=== PATIENT | male | born 1955 | race Caucasian/White ===

== ENCOUNTER 2019-05-10 14:45 | Observation (INO) ==
[2019-05-10] MEDS ORDERED: SODIUM CHLORIDE 0.9% 1000ML 1,000 ML IV ONE (14:57)
[2019-05-10 15:37] LABS: Basophils # (auto) 0.01 K/uL (0-0.2); Basophils % (auto) 0.1 %; Eosinophils # (auto) 0.11 K/uL (0-0.5); Eosinophils % (auto) 1.5 %; Hematocrit (blood only) 44.2 % (42-52); Hemoglobin 15.5 g/dL (14.0-18.0); Immature Granulocytes # (auto) 0.01 K/uL (0.00-0.02); Immature Granulocytes % (auto) 0.1 %; Lymphocytes % (auto) 26.4 %; Mean Corpuscular Hemoglobin 32.5 pg (25-34); Mean Corpuscular Hgb Conc 35.1 g/dL (32-36); Mean Corpuscular Volume 92.7 fL (80-100); Mean Platelet Volume 10.7 fL (7.4-10.4); Monocytes # (auto) 0.61 K/uL (0.11-0.59); Monocytes % (auto) 8.5 %; Neutrophils # (auto) 4.57 K/uL (1.4-6.5); Neutrophils % (auto) 63.4 %; Platelet Count 215 K/uL (130-400); RDW Coefficient of Variation 13.7 % (11.5-14.5); RDW Standard Deviation 46.8 fL (36.4-46.3); Red Blood Count 4.77 M/uL (4.7-6.1); White Blood Count 7.21 K/uL (4.8-10.8)
[2019-05-10 15:39] LABS: Appearance Urine Clear (Clear); Bacteria Urine Automated Negative (Negative); Bilirubin Urine Negative (Negative); Blood Urine Negative (Negative); Color Urine Dark Yellow; Glucose Urine UA Negative (Negative); Ketones Urine Trace (Negative); Leukocyte Esterase Urine Trace (Negative); Nitrite Urine Negative (Negative); Protein Urine Trace (Negative); RBC Urine Automated 0-4 /hpf (0-4); Specific Gravity Urine 1.026 (1.000-1.030); Urobilinogen Urine Negative (Negative)
--- NOTE | 2019-05-10 15:52 | XRay Report ---
XR chest 1V portable CLINICAL HISTORY: 63 years-old Male presenting with Chest Pain. TECHNIQUE: Portable upright AP view of the chest was obtained. COMPARISON: None. FINDINGS: Cardiomediastinal silhouette normal. No focal opacity. No large effusion or pneumothorax. Osseous str uctures normal. Upper abdomen normal. IMPRESSION: 1. No acute cardiopulmonary disease. Electronically signed by: Mauricio Adhikari M.D. 05/10/2019 3:51 PM
[2019-05-10 15:54] LABS: Alanine Aminotransferase 40 U/L (12-78); Albumin Level 3.7 gm/dl (3.4-5.0); Aspartate Aminotransferase 20 U/L (15-37); BUN Creatinine Ratio 17.3 (10-20); Blood Urea Nitrogen 20 mg/dl (7-18); Calcium 9.1 mg/dl (8.5-10.1); Carbon Dioxide 28 mmol/L (21-32); Chloride 106 mmol/L (98-107); Creatinine Clr Calc Pharmacy 61.9 ml/min; Est GFR (African American) 80.9; Est GFR (Non-African American) 69.8; Glucose 211 mg/dl (70-99); Lipase 237 U/L (73-393); Magnesium 2.1 mg/dl (1.8-2.4); Potassium 3.8 mmol/L (3.5-5.1); Sodium 139 mmol/L (136-145)
[2019-05-10] MEDS ORDERED: OPTIRAY 320 125ml IV PRN (16:08)
[2019-05-10 16:09] LABS: Alkaline Phosphatase 86 U/L (45-117); Bilirubin,Total 0.5 mg/dl (0.2-1); Globulin 3.8 gm/dl (2.5-4.0); Phosphorus 1.5 mg/dl (2.5-4.9); Total Protein 7.5 gm/dl (6.4-8.2); Troponin I < 0.015 ng/ml (0-0.045)
[2019-05-10 16:23] LABS: T4 Free Thyroxine 0.75 ng/dl (0.8-1.6)
--- NOTE | 2019-05-10 16:24 | CT Scan Report ---
CT head/brain wo con CLINICAL HISTORY: 63 years-old Male presenting with near syncope. TECHNIQUE: Multidetector CT imaging of the head was performed without the use of intravenous contrast . IV contrast: None. One or more dose lowering techniques were used consistent with the principles of ALARA (as low as reasonably achievable), including automatic exposure control, mA or kV adjustment t o individual patient size, and/or use of iterative reconstruction. COMPARISON: None. CT DOSE (mGy.cm): The estimated cumulative dose is 1087.37. FINDINGS: Bingo Checker topogram: Unremarkable. Ventricles and sulci normal in size. No hemorrhage. Brain parenchyma normal in appearance with preser jasmina mackey-white differentiation. No acute territorial infarct. No mass effect or midline shift. No ext ra-axial fluid collection. Paranasal sinuses and mastoid air cells clear. Calvarium intact. IMPRESSION: 1. No acute intracranial abnormality. Electronically signed by: Mauricio Adhikari M.D. 05/10/2019 4:23 PM
--- NOTE | 2019-05-10 16:26 | CT Scan Report ---
CT angio head w con CLINICAL HISTORY: 63 years-old Male presenting with near syncope, disorientation. TECHNIQUE: Multidetector CT angiography of the head was performed after the administration of intrave nous contrast. 3-D volumetric and/or maximum intensity projection (MIP) images were subsequently jonathan nstructed for review. IV contrast: 120 mL of Optiray 320. One or more dose lowering techniques were u sed consistent with the principles of ALARA (as low as reasonably achievable), including automatic ex posure control, mA or kV adjustment to individual patient size, and/or use of iterative reconstructio n. COMPARISON: None. CT DOSE (mGy.cm): The estimated cumulative dose is 1087.37. FINDINGS: Stripper Machine Operator topogram: Unremarkable. Anterior circulation: Intracranial portions of the internal carotid arteries patent to the level of t he termini. Anterior cerebral arteries patent. Middle cerebral arteries patent. Anterior communicatin g artery patent. Posterior circulation: Codominant vertebral arteries. Intradural portions of the vertebral arteries p atent. Posterior inferior cerebellar arteries patent. Basilar artery patent. Anterior inferior cerebe llar arteries poorly visualized. Superior cerebellar arteries patent. Posterior cerebral arteries hyp oplastic or aplastic and the P1 segments and otherwise patent. Posterior communicating arteries paten t. Dural venous sinuses: Patent. Other: Allowing for the phase of contrast, brain parenchyma within normal limits. Calvarium intact. IMPRESSION: 1. No evidence of aneurysm, focal vessel occlusion, or significant stenosis of the intracranial vega randa. Electronically signed by: Mauricio Adhikari M.D. 05/10/2019 4:25 PM
--- NOTE | 2019-05-10 16:36 | CT Scan Report ---
CT angio neck with con CLINICAL HISTORY: 63 years-old Male presenting with near syncope, episodic disorientation. TECHNIQUE: Multidetector CT angiography of the neck was performed after the administration of intrave nous contrast. 3-D volumetric and/or maximum intensity projection (MIP) images were subsequently jonathan nstructed for review. IV contrast: 120 mL of Optiray 320. One or more dose lowering techniques were u sed consistent with the principles of ALARA (as low as reasonably achievable), including automatic ex posure control, mA or kV adjustment to individual patient size, and/or use of iterative reconstructio n. Stenosis measurements were based on NASCET-like criteria (distal lumen diameter as the denominator for stenosis measurement). COMPARISON: None. CT DOSE (mGy.cm): The estimated cumulative dose is 1087.37 mGy.cm. FINDINGS: Pocket Closer topogram: Unremarkable. Aortic arch: Normal three-vessel aortic arch with patent origins of the branch vessels. Innominate artery: Patent. Right subclavian artery: Patent. Right common carotid artery: Patent. Right internal and external carotid arteries: Right carotid bifurcation patent. Right internal and ex ternal carotid arteries widely patent. Left common carotid artery: Patent. Left internal and external carotid arteries: Left carotid bifurcation patent. Left internal and exter nal carotid arteries widely patent. Left subclavian artery: Patent. Vertebral arteries: Right dominant vertebral artery. Origins and courses of the bilateral vertebral a rteries patent. Other: Limited intracranial evaluation within normal limits. Soft tissues of the neck normal allowing for the phase of contrast. Degenerative changes of the cervical spine. Lung apices clear. IMPRESSION: 1. No evidence of dissection, focal vessel occlusion, or significant stenosis of the cervical arteri es. Electronically signed by: Mauricio Adhikari M.D. 05/10/2019 4:35 PM
[2019-05-10] MEDS ORDERED: POTASSIUM PHOS 3 MMOL/1 ML INFUSION IV STA (16:38)
[2019-05-10] MEDS ORDERED: POTASSIUM PHOSPHATE 9 MMOL in SODIUM CHLORIDE 0.9% 250 ML IV ONE (17:00)
[2019-05-10] MEDS ORDERED: ONDANSETRON INJ 2 MG/ML 2 ML VIAL IV PRN (19:37)
[2019-05-10] MEDS ORDERED: NITROGLYCERIN SL 0.4 MG/TAB TAB SL PRN (19:37)
[2019-05-10] MEDS ORDERED: ACETAMINOPHEN 325 MG TAB PO PRN (19:37)
--- NOTE | 2019-05-10 19:59 | History and Physical Report ---
DATE OF ADMISSION: 05/10/2019 CHIEF COMPLAINT: Presyncope. HISTORY OF PRESENT ILLNESS: This is a 63-year-old male with past medical history significant for hypertension, hyperlipidemia, BPH, presents with presyncope. The patient is visiting [place] for football game. He is about [place] half hours from [place]. He was sitting in between two recreational vehicles; one of the vehicle engine was on. He was sitting in a chair, he suddenly felt dizzy, lightheaded and feeling hot and just sat down, then EMS was called in and he thought he should come in the hospital and check in. Currently resting comfortably and hemodynamically stable. Denies any chest pain, no shortness of breath, no cough, no fever, no chills, no headache, no blurred vision, no runny nose, no sore throat, no difficulty swallowing. No recent weight gain or weight loss. Sleeps okay. No fever, chills. Appetite is okay. No nausea, no abdominal pain, no shortness of breath. Generally normal bowel and bladder movements. Today while coming he moved his bowels in his pants, he thinks maybe because he could not have time to go to bathroom. It was somewhat loose. Denies any blood in stool or black stools. Normal bladder movements. No hematuria, no burning micturition, no swelling in the legs, no rash. ALLERGIES: No known drug allergies. PAST MEDICAL HISTORY: As mentioned above. PAST SURGICAL HISTORY: None. MEDICATIONS: Aspirin, atorvastatin, lisinopril, multivitamins, prostate vitamin. FAMILY HISTORY: Significant for father and mother had stroke and heart disease. SOCIAL HISTORY: No history of smoking; alcohol rarely. No drug use. REVIEW OF SYMPTOMS: As per HPI. Rest of review of systems negative. PHYSICAL EXAMINATION: GENERAL: The patient is of moderate build, not in acute distress. VITAL SIGNS: Temperature 36.6, pulse 100, respiratory rate 15, blood pressure 149/70, oxygen 98% on room air. HEENT: No pallor, no icterus. Pupils equal, round, and reactive to light. NECK: No JVD, no neck masses. CARDIOVASCULAR: S1, S2 heard, regular rate and rhythm, no murmur, no gallop. RESPIRATORY SYSTEM: Normal AP diameter. No accessory muscle use. No wheezing, no crackles. ABDOMEN: Soft, bowel sounds present, nontender. No distention. CENTRAL NERVOUS SYSTEM: Cranial nerves II-XII grossly intact. Nonfocal. EXTREMITIES: No edema, no erythema. LABORATORY DATA: WBC 7.2, hemoglobin 15.5, hematocrit 44.2, platelets 215. Sodium 139, potassium 3.8, chloride 106, bicarbonate 28, BUN 20, creatinine 1.1, serum glucose 211, calcium 9.1, phosphorus 1.5, magnesium 2.1, total bilirubin 0.5, AST 20, ALT 40, alkaline phosphatase 86. Troponin I less than 0.015. Lipase 237. TSH 4.6, free T4 0.75. Urinalysis, trace ketones. CT of the head unremarkable. Chest x-ray unremarkable. EKG shows left bundle branch block with rate of 108. No previous EKG is available. ASSESSMENT AND PLAN: This is a 63-year-old male who presents with presyncope. 1. Presyncope, could be from the dehydration as he was visiting for the football game, also could be some toxic fumes from the refreshment vehicles. Carboxyhemoglobin unremarkable. Currently hemodynamically stable.EKG shows Left bundle branch block, we do not have any records. Patient has no chest pain or shortness of breath. We will observe in tele floor. Serial cardiac enzymes, and echocardiogram 2. Hypertension. Continue his home medication of lisinopril with holding parameters. 3. Hyperlipidemia. Continue statin. 4. Hyperglycemia. Blood sugar was 211. Says he just had mountain dew. We will follow hemoglobin A1c levels. Monitor the blood sugar. Place him on diabetic diet. 5. Hypophosphatemia, phosphatase is 1.5. will place on neutra-phos Getting replaced in the ER. We will follow repeat labs. 6. Hypothyroidism, TSH is slightly high and free T4 is slightly on the lower range. We will follow repeat labs. If still low, we will start on Synthroid and follow with family doctor. 7. Deep venous thrombosis prophylaxis, SCDs. DISPOSITION: Closely monitor in tele floor. Level 1, full code. MTDD
[2019-05-10] MEDS: SODIUM CHLORIDE 0.9% 1000ML 1,000 ML IV SCH (20:04)
[2019-05-10] MEDS ORDERED: POT PHOSPHATE MONOBASIC W/ SOD TAB PO SCH (21:00)
--- NOTE | 2019-05-10 22:00 | Emergency Department Note ---
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 He reports that he was tailgating, between two RVs, for the football game. The patient notes that one of the RVs was running, and he began to feel lightheaded and warm. He notes that he went to the medic tent and was given oxygen and a cold compress, noting that both provided some relief. The patient denies any LOC, chest pain, and SOB. He denies any current symptoms or current pain. He reports that he did not have a lot to drink today. The patient notes that he felt normal today until the near-syncope occurred, stating that he feels normal now. He denies any alcohol consumption today. Home Medications Home Medications Medication Instructions Recorded Confirmed Type Prostate Vitamin 1 tab PO DAILY 05/10/19 05/10/19 History aspirin [Aspir-81] 81 mg PO DAILY 05/10/19 05/10/19 History atorvastatin [Lipitor] 5 mg PO DAILY 05/10/19 05/10/19 History cholecalciferol (vitamin D3) 2,000 unit PO DAILY 05/10/19 05/10/19 History [Vitamin D3] lisinopril 15 mg PO DAILY 05/10/19 05/10/19 History multivitamin 1 tab PO DAILY 05/10/19 05/10/19 History Allergies Allergy/AdvReac Type Severity Reaction Status Date / Time No Known Allergies Allergy Unverified 05/10/19 17:05 Past Med/Surg History Medical History Mitral valve prolapse Social History Preferred Language: Thai Communication Ability: Effective Beliefs That Will Affect Care: None Current Living Situation: Spouse Other Information That Helps Us Care for You: No Feels Safe at Home: Yes Safety Concerns: Feels Safe At This Time Smoking Status: Never smoker Hx Alcohol Use: Yes Alcohol type: beer and wine Hx Substance Use: No Review of Systems See HPI for pertinent positives & negatives. and A total of 10 systems reviewed and were otherwise negative Physical Exam Vital Signs Vital Signs - 24 hr 05/10/19 14:52 05/10/19 15:07 05/10/19 15:28 Temperature 36.6 C Temperature Source Oral Sepsis Recent Fever Within 48 Hours No Sepsis New/Unexplained Change in Mental Status No Sepsis Action Taken by Nursing No Action Required Pulse Rate - Lying 102 H Pulse Rate - Sitting 115 H Pulse Rate - Standing 123 H Pulse Rate 104 H Pulse Rate [Left Finger] Respiratory Rate 20 Respiratory Effort / Characteristics Respiratory Depth Respiratory Pattern Blood Pressure - Lying 136/78 Blood Pressure - Sitting 164/83 H Blood Pressure- Standing 135/89 Blood Pressure 132/75 Blood Pressure [Left Arm] Blood Pressure Mean 94 Blood Pressure Mean [Left Arm] Blood Pressure Position [Left Arm] Pulse Oximetry 96 97 Oxygen Delivery Method Room Air Room Air 05/10/19 16:00 05/10/19 16:57 05/10/19 18:11 Temperature Temperature Source Sepsis Recent Fever Within 48 Hours Sepsis New/Unexplained Change in Mental Status Sepsis Action Taken by Nursing Pulse Rate - Lying Pulse Rate - Sitting Pulse Rate - Standing Pulse Rate Pulse Rate [Left Finger] 107 H 109 H 100 H Respiratory Rate 20 18 15 Respiratory Effort / Characteristics Non-Labored Spontaneous Respiratory Depth Normal Respiratory Pattern Regular Blood Pressure - Lying Blood Pressure - Sitting Blood Pressure- Standing Blood Pressure Blood Pressure [Left Arm] 161/80 H 141/77 H 149/79 H Blood Pressure Mean Blood Pressure Mean [Left Arm] 107 98 102 Blood Pressure Position [Left Arm] Lying Pulse Oximetry 98 97 98 Oxygen Delivery Method Room Air Room Air Room Air GENERAL: Awake, alert, well-appearing, in no distress HENT: Normocephalic, atraumatic. Oropharynx with dry mucous membranes and otherwise unremarkable. EYES: Normal conjunctiva. Sclera non-icteric. NECK: Supple. No nuchal rigidity. FROM. No JVD. RESPIRATORY: CTAB. CARDIAC: Tachycardic rate, normal rhythm. Extremities warm and well perfused. Pulses equal. ABDOMEN: Soft, non-distended. No tenderness to palpation. No rebound or guarding. No masses. RECTAL: Deferred. MUSCULOSKELETAL: Chest examination reveals no tenderness. The back is symmetrical on inspection without obvious abnormality. There is no CVA tenderness to palpation. No joint edema. LOWER EXTREMITIES: Calves are equal size bilaterally and non-tender. No edema. No discoloration. NEURO: Normal sensorium. No sensory or motor deficits noted. Cerebellar function intact, including finger to nose, alternating palms, heel to tran. 5/5 strength and SILT x4 extremities. SKIN: No rash or jaundice noted. Course 153: The patient was evaluated in room A11. A complete history and physical exam was performed. 1719: I spoke with Dr. Gutierrez, [facility], about the patients case. He asked me to consult with [facility]. Dr. Gutierrez will further evaluate the patient. 1722: I updated the patient on his results. He was in agreement with the plan. 1731: I spoke with Dr. Blake, [facility], about the patient case. He will evaluate the patient, and he agrees with admission. Consultations Consultation #1: I spoke with Dr. Gutierrez, [facility], about the patients case. He asked me to consult with [facility]. Dr. Gutierrez w ill further evaluate the patient. Time: 17:19 Consultation #2: I spoke with Dr. Blake, [facility], about the patient case. He will evaluate the patient, and he agrees with admission. Time: 17:31 Administered Medications Sodium Chloride (Nss 1000ml) 1,000 mls @ 100 mls/hr IV .Q10H FAVIAN Stop: 06/09/19 19:36 Last Admin: 05/10/19 20:04 Dose: 100 mls/hr Documented by: [id number] Potassium Phosphate (Phospha 250 Neutral 155-852-130 Mg) 2 tab PO QID FAVIAN Stop: 06/09/19 20:59 Last Admin: 05/10/19 21:43 Dose: 2 tab Documented by: [id number] Discontinued Medications Sodium Chloride (Nss 1000ml) 1,000 mls @ 999 mls/hr IV .Q1H1M ONE Stop: 05/10/19 15:57 Last Infusion: 05/10/19 16:00 Dose: 0 mls/hr Documented by: [id number] Admin: 05/10/19 15:29 Dose: 999 mls/hr Documented by: [id number] Potassium Phosphate 9 mmol/ (Sodium Chloride) 253 mls @ 168 mls/hr IV TODAY@1700 ONE Stop: 05/10/19 18:30 Last Infusion: 05/10/19 19:13 Dose: 0 mls/hr Documented by: [id number] Admin: 05/10/19 17:09 Dose: 168 mls/hr Documented by: [id number] Ioversol (Optiray 320 125ml) 120 ml IV ONCE PRN PRN Reason: Interaction Checking Stop: 05/14/19 16:07 Last Admin: 05/10/19 16:09 Dose: 120 ml Documented by: [id number] Potassium Phosphate (Potassium Phosphate Replace) 9 mmol IV NOW STA Stop: 05/10/19 16:39 Last Admin: 05/10/19 17:14 Dose: Not Given Documented by: [id number] Medical Decision Making Differential Diagnosis Etiologies such as vasovagal event, infection, anemia, hypoglycemia, hypovolemia, electrolyte abnormalities, dysrhythmias, cardiac ischemia, cardiac tamponade, valvular heart disease, structural heart disease, seizure, vascular stenosis/dissection, pulmonary embolism, intracerebral event, toxicological process, neurologic event, as well as others were entertained. Medical Records Attestation: I reviewed the patient's medical records. Home Medications Current Medication List: was personally reviewed by me Laboratory Data Attestation: I reviewed the patient's lab results. Result diagrams: 05/10/19 15:26 05/10/19 15:26 Lab Results 05/10/19 05/10/19 05/10/19 Range/Units 15:26 15:26 15:26 WBC 7.21 (4.8-10.8) K/uL RBC 4.77 (4.7-6.1) M/uL Hgb 15.5 (14.0-18.0) g/dL Hct 44.2 (42-52) % MCV 92.7 (80-100) fL MCH 32.5 (25-34) pg MCHC 35.1 (32-36) g/dL RDW Std Deviation 46.8 H (36.4-46.3) fL RDW Coeff of Charissa 13.7 (11.5-14.5) % Plt Count 215 (130-400) K/uL MPV 10.7 H (7.4-10.4) fL Immature Gran % (Auto) 0.1 % Neut % (Auto) 63.4 % Lymph % (Auto) 26.4 % [place] % (Auto) 8.5 % Eos % (Auto) 1.5 % Baso % (Auto) 0.1 % Immature Gran # (Auto) 0.01 (0.00-0.02) K/uL Neut # (Auto) 4.57 (1.4-6.5) K/uL Lymph # (Auto) 1.90 (1.2-3.4) K/uL [place] # (Auto) 0.61 H (0.11-0.59) K/uL Eos # (Auto) 0.11 (0-0.5) K/uL Baso # (Auto) 0.01 (0-0.2) K/uL Carboxyhemoglobin % THgb Sodium 139 (136-145) mmol/L Potassium 3.8 (3.5-5.1) mmol/L Chloride 106 (98-107) mmol/L Carbon Dioxide 28 (21-32) mmol/L Anion Gap 4.0 (3-11) BUN 20 H (7-18) mg/dl Creatinine 1.13 (0.6-1.4) mg/dl Est Cr Clr Drug Dosing 61.9 ml/min Est GFR ( Amer) 80.9 Est GFR (Non-Af Amer) 69.8 BUN/Creatinine Ratio 17.3 (10-20) Glucose 211 H (70-99) mg/dl Calcium 9.1 (8.5-10.1) mg/dl Phosphorus 1.5 L* (2.5-4.9) mg/dl Magnesium 2.1 (1.8-2.4) mg/dl Total Bilirubin 0.5 (0.2-1) mg/dl AST 20 (15-37) U/L ALT 40 (12-78) U/L Alkaline Phosphatase 86 (45-117) U/L Troponin I < 0.015 (0-0.045) ng/ml Total Protein 7.5 (6.4-8.2) gm/dl Albumin 3.7 (3.4-5.0) gm/dl Globulin 3.8 (2.5-4.0) gm/dl Albumin/Globulin Ratio 1.0 (0.9-2) Lipase 237 (73-393) U/L TSH 4.620 H (0.300-4.500) uIu/ml Free T4 0.75 L (0.8-1.6) ng/dl Urine Color Dark Yellow Urine Appearance Clear (Clear) Urine pH 5.0 (4.5-7.5) Ur Specific [place] 1.026 (1.000-1.030) Urine Protein Trace H (Negative) Urine Glucose (UA) Negative (Negative) Urine Ketones Trace H (Negative) Urine Blood Negative (Negative) Urine Nitrite Negative (Negative) Urine Bilirubin Negative (Negative) Urine Urobilinogen Negative (Negative) Ur Leukocyte Esterase Trace H (Negative) Urine WBC (Auto) 1-5 (0-5) /hpf Urine RBC (Auto) 0-4 (0-4) /hpf U Hyaline Cast (Auto) 5-10 H (0-5) /lpf U Epithel Cells (Auto) 5-10 H (0-5) /lpf Urine Bacteria (Auto) Negative (Negative) 05/10/19 Range/Units 16:31 WBC (4.8-10.8) K/uL RBC (4.7-6.1) M/uL Hgb (14.0-18.0) g/dL Hct (42-52) % MCV (80-100) fL MCH (25-34) pg MCHC (32-36) g/dL RDW Std Deviation (36.4-46.3) fL RDW Coeff of Charissa (11.5-14.5) % Plt Count (130-400) K/uL MPV (7.4-10.4) fL Immature Gran % (Auto) % Neut % (Auto) % Lymph % (Auto) % [place] % (Auto) % Eos % (Auto) % Baso % (Auto) % Immature Gran # (Auto) (0.00-0.02) K/uL Neut # (Auto) (1.4-6.5) K/uL Lymph # (Auto) (1.2-3.4) K/uL [place] # (Auto) (0.11-0.59) K/uL Eos # (Auto) (0-0.5) K/uL Baso # (Auto) (0-0.2) K/uL Carboxyhemoglobin 0.0 % THgb Sodium (136-145) mmol/L Potassium (3.5-5.1) mmol/L Chloride (98-107) mmol/L Carbon Dioxide (21-32) mmol/L Anion Gap (3-11) BUN (7-18) mg/dl Creatinine (0.6-1.4) mg/dl Est Cr Clr Drug Dosing ml/min Est GFR ( Amer) Est GFR (Non-Af Amer) BUN/Creatinine Ratio (10-20) Glucose (70-99) mg/dl Calcium (8.5-10.1) mg/dl Phosphorus (2.5-4.9) mg/dl Magnesium (1.8-2.4) mg/dl Total Bilirubin (0.2-1) mg/dl AST (15-37) U/L ALT (12-78) U/L Alkaline Phosphatase (45-117) U/L Troponin I (0-0.045) ng/ml Total Protein (6.4-8.2) gm/dl Albumin (3.4-5.0) gm/dl Globulin (2.5-4.0) gm/dl Albumin/Globulin Ratio (0.9-2) Lipase (73-393) U/L TSH (0.300-4.500) uIu/ml Free T4 (0.8-1.6) ng/dl Urine Color Urine Appearance (Clear) Urine pH (4.5-7.5) Ur Specific [place] (1.000-1.030) Urine Protein (Negative) Urine Glucose (UA) (Negative) Urine Ketones (Negative) Urine Blood (Negative) Urine Nitrite (Negative) Urine Bilirubin (Negative) Urine Urobilinogen (Negative) Ur Leukocyte Esterase (Negative) Urine WBC (Auto) (0-5) /hpf Urine RBC (Auto) (0-4) /hpf U Hyaline Cast (Auto) (0-5) /lpf U Epithel Cells (Auto) (0-5) /lpf Urine Bacteria (Auto) (Negative) Imaging Data Radiologist's Impression: Radiology results as stated below per my review and the radiologist's interpretation: XR chest 1V portable CLINICAL HISTORY: 63 years-old Male presenting with Chest Pain. TECHNIQUE: Portable upright AP view of the chest was obtained. COMPARISON: None. FINDINGS: Cardiomediastinal silhouette normal. No focal opacity. No large effusion or pneumothorax. Osseous structures normal. Upper abdomen normal. IMPRESSION: 1. No acute cardiopulmonary disease. Electronically signed by: Mauricio Adhikari M.D. 05/10/2019 3:[address] angio head w con CLINICAL HISTORY: 63 years-old Male presenting with near syncope, disorientation. TECHNIQUE: Multidetector CT angiography of the head was performed after the administration of intravenous contrast. 3-D volumetric and/or maximum intensity projection (MIP) images were subsequently reconstructed for review. IV contrast: 120 mL of Optiray 320. One or more dose lowering techniques were used consistent with the principles of ALARA (as low as reasonably achievable), including automatic exposure control, mA or kV adjustment to individual patient size, and/or use of iterative reconstruction. COMPARISON: None. CT DOSE (mGy.cm): The estimated cumulative dose is 1087.37. FINDINGS: Nurse topogram: Unremarkable. Anterior circulation: Intracranial portions of the internal carotid arteries patent to the level of the termini. Anterior cerebral arteries patent. Middle cerebral arteries patent. Anterior communicating artery patent. Posterior circulation: Codominant vertebral arteries. Intradural portions of the vertebral arteries patent. Posterior inferior cerebellar arteries patent. Basilar artery patent. Anterior inferior cerebellar arteries poorly visualized. Superior cerebellar arteries patent. Posterior cerebral arteries hypoplastic or aplastic and the P1 segments and otherwise patent. Posterior communicating arteries patent. Dural venous sinuses: Patent. Other: Allowing for the phase of contrast, brain parenchyma within normal limits. Calvarium intact. IMPRESSION: 1. No evidence of aneurysm, focal vessel occlusion, or significant stenosis of the intracranial arteries. Electronically signed by: Mauricio Adhikari M.D. 05/10/2019 4:[address] angio neck with con CLINICAL HISTORY: 63 years-old Male presenting with near syncope, episodic disorientation. TECHNIQUE: Multidetector CT angiography of the neck was performed after the administration of intravenous contrast. 3-D volumetric and/or maximum intensity projection (MIP) images were subsequently reconstructed for review. IV contrast: 120 mL of Optiray 320. One or more dose lowering techniques were used consistent with the principles of ALARA (as low as reasonably achievable), including automatic exposure control, mA or kV adjustment to individual patient size, and/or use of iterative reconstruction. Stenosis measurements were based on NASCET-like criteria (distal lumen diameter as the denominator for stenosis measurement). COMPARISON: None. CT DOSE (mGy.cm): The estimated cumulative dose is 1087.37 mGy.cm. FINDINGS: Nurse topogram: Unremarkable. Aortic arch: Normal three-vessel aortic arch with patent origins of the branch vessels. Innominate artery: Patent. Right subclavian artery: Patent. Right common carotid artery: Patent. Right internal and external carotid arteries: Right carotid bifurcation patent. Right internal and external carotid arteries widely patent. Left common carotid artery: Patent. Left internal and external carotid arteries: Left carotid bifurcation patent. Left internal and external carotid arteries widely patent. Left subclavian artery: Patent. Vertebral arteries: Right dominant vertebral artery. Origins and courses of the bilateral vertebral arteries patent. Other: Limited intracranial evaluation within normal limits. Soft tissues of the neck normal allowing for the phase of contrast. Degenerative changes of the cervical spine. Lung apices clear. IMPRESSION: 1. No evidence of dissection, focal vessel occlusion, or significant stenosis of the cervical arteries. Electronically signed by: Mauricio Adhikari M.D. 05/10/2019 4:[address] head/brain wo con CLINICAL HISTORY: 63 years-old Male presenting with near syncope. TECHNIQUE: Multidetector CT imaging of the head was performed without the use of intravenous contrast. IV contrast: None. One or more dose lowering techniques were used consistent with the principles of ALARA (as low as reasonably achievable), including automatic exposure control, mA or kV adjustment to individual patient size, and/or use of iterative reconstruction. COMPARISON: None. CT DOSE (mGy.cm): The estimated cumulative dose is 1087.37. FINDINGS: Nurse topogram: Unremarkable. Ventricles and sulci normal in size. No hemorrhage. Brain parenchyma normal in appearance with preserved mackey-white differentiation. No acute territorial i nfarct. No mass effect or midline shift. No extra-axial fluid collection. Paranasal sinuses and mastoid air cells clear. Calvarium intact. IMPRESSION: 1. No acute intracranial abnormality. Electronically signed by: Mauricio Adhikari M.D. 05/10/2019 4:23 PM ECG Data Attestation: I personally reviewed and interpreted this ECG as follows: Indication: other (near syncope) Rate (beats per minute): 108 Rhythm: sinus tachycardia Findings: + other (no overt acute ischemia ) and + LBBB Comparison ECG Date: no prior available Blood Pressure Blood Pressure Findings: Elevated blood pressure Blood Pressure Disposition: further management by hospitalist VIVIAN Cullen The patient is a pleasant 53-year-old gentleman with a past medical history of hypertension, hyperlipidemia who presents emergency department with near syncopal episode occurred when he was at the football game today per hpi. Patient reports only drinking some tea and 1 Mountain Dew today prior to his episode. He reports he was walking in between 2 campers when his symptoms started and was told afterwards that it appeared that 1 of the camper's was running and it smelled like exhaust in the area he was in. On arrival patient is fatigued appearing but no acute distress, afebrile, heart rate in the 110s and otherwise with stable vital signs. Patient appears clinically dry. He is neurologically intact. EKG demonstrates left bundle branch block without overt acute ischemia (no Sgarbossa criteria). I did discuss his EKG with the patient and he is unaware of ever being told he had an abnormal EKG. He does recall being told he had a mitral prolapse but nothing more than that. 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 Chest x-ray negative for acute process. WBC, H/H, platelets wnl. Glucose 211 and chemistry without acidosis. Phosphorus 1.5 with repletion provided. LFTs and electrolytes otherwise unremarkable. Troponin negative. Carboxyhemoglobin negative. UA without infection. CT head and CTA head and neck negative for ischemia, ICH or severe narrowing or occlusion of large vessels. Reevaluated and feeling improved after IV fluid hydration. While the patient's near syncopal episode certainly could be explained by mild dehydration and being a outside in the heat, I discussed the patient's evaluation with him and his and in particular his syncopal episode in the setting of his left bundle branch block which is of unclear chronicity. The patient does not have any chest pain or shortness of breath that would raise suspicion for acute coronary syndrome however reasonable to admit the patient for further management. This was discussed with Demi Chery PA-C, who will evaluate the patient for admission. Case additionally discussed with Demi Cat cardiology on behalf of the admitting team, who agrees with plan for admission and further rule out with echo cardiogram. Patient agrees admission. Impression & Plan Near syncope, Bundle branch block, left, Dehydration Discharge Plan Visit Data *Final* Discharge Date/Time: 05/10/19 19:56 Chief Complaint: Syncope (Near Syncope) Stated Complaint: ams ED Provider: Kip Looney Discharge Problem: Near syncope, Bundle branch block, left, Dehydration Patient Disposition: Admitted As Inpatient Discharge Instructions Interventions: ED Discharge Assessment Last Done: 05/10/19 19:56 The scribe's documentation has been prepared under my direction and personally reviewed by me in its entirety. I confirm that the note above accurately reflects all work, treatment, procedures, and medical decision making performed by me.
[2019-05-11 03:59] LABS: Basophils # (auto) 0.01 K/uL (0-0.2); Basophils % (auto) 0.1 %; Eosinophils # (auto) 0.13 K/uL (0-0.5); Eosinophils % (auto) 1.4 %; Hematocrit (blood only) 41.4 % (42-52); Hemoglobin 14.5 g/dL (14.0-18.0); Immature Granulocytes # (auto) 0.01 K/uL (0.00-0.02); Immature Granulocytes % (auto) 0.1 %; Lymphocytes # (auto) 2.29 K/uL (1.2-3.4); Lymphocytes % (auto) 23.9 %; Mean Corpuscular Hemoglobin 32.4 pg (25-34); Mean Corpuscular Volume 92.6 fL (80-100); Mean Platelet Volume 10.8 fL (7.4-10.4); Monocytes # (auto) 0.89 K/uL (0.11-0.59); Monocytes % (auto) 9.3 %; Neutrophils # (auto) 6.25 K/uL (1.4-6.5); Neutrophils % (auto) 65.2 %; Platelet Count 214 K/uL (130-400); RDW Coefficient of Variation 13.8 % (11.5-14.5); RDW Standard Deviation 46.8 fL (36.4-46.3); Red Blood Count 4.47 M/uL (4.7-6.1); White Blood Count 9.58 K/uL (4.8-10.8)
[2019-05-11 04:23] LABS: BUN Creatinine Ratio 14.5 (10-20); Blood Urea Nitrogen 11 mg/dl (7-18); Calcium 8.4 mg/dl (8.5-10.1); Carbon Dioxide 27 mmol/L (21-32); Chloride 113 mmol/L (98-107); Creatinine Clr Calc Pharmacy 88.6 ml/min; Est GFR (African American) 112.3; Est GFR (Non-African American) 96.9; Glucose 108 mg/dl (70-99); Sodium 144 mmol/L (136-145)
[2019-05-11 04:27] LABS: Phosphorus 3.2 mg/dl (2.5-4.9); Troponin I < 0.015 ng/ml (0-0.045)
[2019-05-11] MEDS: SODIUM CHLORIDE 0.9% 1000ML 1,000 ML IV SCH (04:35)
[2019-05-11 05:04] LABS: Potassium 4.1 mmol/L (3.5-5.1)
--- NOTE | 2019-05-11 08:57 | Hospitalist Progress Note ---
Date of Service May 11, 2019 Assessment & Plan (1) Near syncope: In the setting of left bundle branch block No previous EKGs available for comparison Troponins x3: Negative Repeat EKG: Left bundle branch block Echo: Left ventricle is normal in size There is mild concentric left ventricle hypertrophy There is an abnormal septal motion consistent with left bundle branch block with otherwise normal wall motion and contractility Left ventricular systolic function is normal Ejection fraction is 55 to 60% Aortic valve sclerosis mild, without significant aortic valve stenosis Symptoms have resolved during admission Automated Equipment Engineer Technician Dr. Blake was consulted-symptoms felt to be vasovagal in nature but patient has Risk factors for coronary disease including hypertension, dyslipidemia, family history Patient will need further investigation as an outpatient including stressed imaging and event monitor placement to include bradycardia arrhythmias Cleared for discharge, please refer to elevator constructor hydraulic as outpatient, recommended no heavy exertion until work-up was completed Hypertension Stable, continue usual lisinopril Hypothyroidism TSH 5.2 Free T4 0.75 Start levothyroxine 50 mcg daily Repeat blood function tests in 4 to 6 months Dyslipidemia Continue atorvastatin Hyperglycemia Blood glucose level 211 on admission, improved to 108 in the morning A1c pending Follow-up as an outpatient Hypophosphatemia Replaced, resolved Disposition Continue usual medications with the addition of levothyroxine Follow-up with primary care physician this week Refer to elevator constructor hydraulic for stress test and trailer driver placement Repeat thyroid function tests in 4 to 6 weeks Plan of care discussed with patient in detail and at length All questions answered He is understanding, comfortable, agreeable with plan of care Subjective Follow-up for presyncope, left bundle branch block Seen ambulating in the room Requested to sit up in bed, for exam Patient is comfortable, not in distress States he feels much better overall Denies syncope/presyncope in the hospital, no chest pain, shortness of breath, palpitations, dizziness Denies any other symptoms Review of Systems Review of Systems: All systems reviewed & are unremarkable except as noted in HPI & below Physical Exam Physical Exam: General- oriented x 3, not in distress, speaks in sentences with no effort or accessory muscle use Head- atraumatic Eyes- PERRL, EOMI, anicteric ENT- oropharynx clear Neck- supple, no JVD, no adenopathy, no thyromegaly; carotids +2/2, no bruits appreciated Lungs- clear to auscultation bilaterally, no rales/wheezes Heart- normal rate, regular rhythm; no murmur, no gallop, no rub appreciated Abdomen- normal bowel sounds, nondistended, soft, nontender, no masses or hepatosplenomegaly Extremities- no pretibial edema, no calf tenderness; peripheral pulses intact Neuro- alert, oriented x 3; CN 2-12 grossly intact; motor 5/5 bilaterally;sensation 100% on all extremities; no other gross focal neurologic deficits Skin- warm & dry Results & Data Vital Signs (Past 12 Hours) Vital Signs Temp Pulse Pulse Resp BP Pulse Ox 05/11/19 07:29 37 C 82 18 144/70 H 98 05/11/19 07:24 78 05/11/19 03:14 37.0 C 85 16 150/74 H 98 05/11/19 01:03 68 05/10/19 23:49 36.9 C 91 H 16 144/77 H 96 05/10/19 23:02 88 Laboratory Results Laboratory Results - last 24 hr 05/10/19 05/10/19 05/10/19 15:26 15:26 15:26 WBC 7.21 RBC 4.77 Hgb 15.5 Hct 44.2 MCV 92.7 MCH 32.5 MCHC 35.1 RDW Std Deviation 46.8 H RDW Coeff of Charissa 13.7 Plt Count 215 MPV 10.7 H Immature Gran % (Auto) 0.1 Neut % (Auto) 63.4 Lymph % (Auto) 26.4 [place] % (Auto) 8.5 Eos % (Auto) 1.5 Baso % (Auto) 0.1 Immature Gran # (Auto) 0.01 Neut # (Auto) 4.57 Lymph # (Auto) 1.90 [place] # (Auto) 0.61 H Eos # (Auto) 0.11 Baso # (Auto) 0.01 Carboxyhemoglobin Sodium 139 Potassium 3.8 Chloride 106 Carbon Dioxide 28 Anion Gap 4.0 BUN 20 H Creatinine 1.13 Est Cr Clr Drug Dosing 61.9 Est GFR ( Amer) 80.9 Est GFR (Non-Af Amer) 69.8 BUN/Creatinine Ratio 17.3 Glucose 211 H Estimat Average Glucose Hemoglobin A1c Calcium 9.1 Phosphorus 1.5 L* Magnesium 2.1 Total Bilirubin 0.5 AST 20 ALT 40 Alkaline Phosphatase 86 Troponin I < 0.015 Total Protein 7.5 Albumin 3.7 Globulin 3.8 Albumin/Globulin Ratio 1.0 Lipase 237 TSH 4.620 H Free T4 0.75 L Urine Color Dark Yellow Urine Appearance Clear Urine pH 5.0 Ur Specific [place] 1.026 Urine Protein Trace H Urine Glucose (UA) Negative Urine Ketones Trace H Urine Blood Negative Urine Nitrite Negative Urine Bilirubin Negative Urine Urobilinogen Negative Ur Leukocyte Esterase Trace H Urine WBC (Auto) 1-5 Urine RBC (Auto) 0-4 U Hyaline Cast (Auto) 5-10 H U Epithel Cells (Auto) 5-10 H Urine Bacteria (Auto) Negative 05/10/19 05/10/19 05/11/19 16:31 21:58 03:42 WBC 9.58 RBC 4.47 L Hgb 14.5 Hct 41.4 L MCV 92.6 MCH 32.4 MCHC 35.0 RDW Std Deviation 46.8 H RDW Coeff of Charissa 13.8 Plt Count 214 MPV 10.8 H Immature Gran % (Auto) 0.1 Neut % (Auto) 65.2 Lymph % (Auto) 23.9 [place] % (Auto) 9.3 Eos % (Auto) 1.4 Baso % (Auto) 0.1 Immature Gran # (Auto) 0.01 Neut # (Auto) 6.25 Lymph # (Auto) 2.29 [place] # (Auto) 0.89 H Eos # (Auto) 0.13 Baso # (Auto) 0.01 Carboxyhemoglobin 0.0 Sodium Potassium Chloride Carbon Dioxide Anion Gap BUN Creatinine Est Cr Clr Drug Dosing Est GFR ( Amer) Est GFR (Non-Af Amer) BUN/Creatinine Ratio Glucose Estimat Average Glucose Hemoglobin A1c Calcium Phosphorus Magnesium Total Bilirubin AST ALT Alkaline Phosphatase Troponin I < 0.015 Total Protein Albumin Globulin Albumin/Globulin Ratio Lipase TSH Free T4 Urine Color Urine Appearance Urine pH Ur Specific [place] Urine Protein Urine Glucose (UA) Urine Ketones Urine Blood Urine Nitrite Urine Bilirubin Urine Urobilinogen Ur Leukocyte Esterase Urine WBC (Auto) Urine RBC (Auto) U Hyaline Cast (Auto) U Epithel Cells (Auto) Urine Bacteria (Auto) 05/11/19 05/11/19 05/11/19 03:42 03:42 04:30 WBC RBC Hgb Hct MCV MCH MCHC RDW Std Deviation RDW Coeff of Charissa Plt Count MPV Immature Gran % (Auto) Neut % (Auto) Lymph % (Auto) [place] % (Auto) Eos % (Auto) Baso % (Auto) Immature Gran # (Auto) Neut # (Auto) Lymph # (Auto) [place] # (Auto) Eos # (Auto) Baso # (Auto) Carboxyhemoglobin Sodium 144 Potassium 4.1 Chloride 113 H Carbon Dioxide 27 Anion Gap 4.0 BUN 11 Creatinine 0.79 D Est Cr Clr Drug Dosing 88.6 Est GFR ( Amer) 112.3 Est GFR (Non-Af Amer) 96.9 BUN/Creatinine Ratio 14.5 Glucose 108 H Estimat Average Glucose Pending Hemoglobin A1c Pending Calcium 8.4 L Phosphorus 3.2 D Magnesium 2.0 Total Bilirubin AST ALT Alkaline Phosphatase Troponin I < 0.015 Total Protein Albumin Globulin Albumin/Globulin Ratio Lipase TSH 5.230 H Free T4 Urine Color Urine Appearance Urine pH Ur Specific [place] Urine Protein Urine Glucose (UA) Urine Ketones Urine Blood Urine Nitrite Urine Bilirubin Urine Urobilinogen Ur Leukocyte Esterase Urine WBC (Auto) Urine RBC (Auto) U Hyaline Cast (Auto) U Epithel Cells (Auto) Urine Bacteria (Auto) 05/11/19 10:03 WBC RBC Hgb Hct MCV MCH MCHC RDW Std Deviation RDW Coeff of Charissa Plt Count MPV Immature Gran % (Auto) Neut % (Auto) Lymph % (Auto) [place] % (Auto) Eos % (Auto) Baso % (Auto) Immature Gran # (Auto) Neut # (Auto) Lymph # (Auto) [place] # (Auto) Eos # (Auto) Baso # (Auto) Carboxyhemoglobin Sodium Potassium Chloride Carbon Dioxide Anion Gap BUN Creatinine Est Cr Clr Drug Dosing Est GFR ( Amer) Est GFR (Non-Af Amer) BUN/Creatinine Ratio Glucose Estimat Average Glucose Hemoglobin A1c Calcium Phosphorus Magnesium Total Bilirubin AST ALT Alkaline Phosphatase Troponin I < 0.015 Total Protein Albumin Globulin Albumin/Globulin Ratio Lipase TSH Free T4 Urine Color Urine Appearance Urine pH Ur Specific [place] Urine Protein Urine Glucose (UA) Urine Ketones Urine Blood Urine Nitrite Urine Bilirubin Urine Urobilinogen Ur Leukocyte Esterase Urine WBC (Auto) Urine RBC (Auto) U Hyaline Cast (Auto) U Epithel Cells (Auto) Urine Bacteria (Auto)
[2019-05-11] MEDS ORDERED: ASPIRIN 81 MG ECTAB PO SCH (09:00)
[2019-05-11] MEDS ORDERED: MULTIVITAMIN TAB PO SCH (09:00)
[2019-05-11] MEDS ORDERED: ATORVASTATIN 10 MG TAB PO SCH (09:00)
[2019-05-11] MEDS ORDERED: LISINOPRIL 5 MG TAB PO SCH (09:00)
[2019-05-11] MEDS ORDERED: CHOLECALCIFEROL 1,000 UNITS TAB PO SCH (09:00)
--- NOTE | 2019-05-11 11:20 | Cardiology Consultation ---
Date of Consultation May 11, 2019 Assessment & Plan (1) Near syncope: Symptoms by description appear vagal in nature however patient has underlying risk factors for coronary disease of hypertension hyperlipidemia and familial history. Newly observed left bundle branch block on EKG. Evaluation in hospital demonstrates no signs of acute coronary syndrome by enzyme and echocardiogram Patient will warrant further investigation post discharge with stress imaging as well as event monitor placement to exclude the intermittent bradycardia arrhythmias Patient is ambulatory in bourgeois without complaints may be discharged for sedentary activity until evaluated by primary care physician and cardiology referral as outpatient Would recommend initiating treatment for hypothyroidism observed on laboratory testing (2) Bundle branch block, left: As above History of Present Illness Reason for Consultation: Presyncope, newly observed left bundle branch block Requesting Physician: Dr. Noriega PCP Dr Graham Clarke [address] [place] [address], [address] [place] [id number] Attending Physician: Jason Noriega MD History of Present Illness Patient is a 63-year-old male without prior history of cardiac disease but with underlying history of controlled hyperlipidemia, hypertension and familial history of premature coronary disease. Yesterday while attending [employer] game was walking through the parking lot after eating sub-large soft drink with standing between [employer] with diesel fumes present and became warm and diaphoretic. Patient became lightheaded but had no true syncope he did develop fecal urgency which resolved after large bowel movement. Symptoms resolved on presentation to the emergency room and he is referred now after inpatient observation for further evaluation. Patient denies history of prior myocardial infarction, angina, congestive heart failure, tachypalpitations, syncope, near syncope. Other than above generally been feeling well. Notes no fevers chills or recent illness. Notes no bleeding difficulties. Notes no melena hematochezia dysuria hematuria appetite and weight have been stable. He is generally active about his home, walks 45 minutes 5 days/week for exercise with good tolerance He is not aware of prior history of left bundle branch block Since hospitalization troponin are negative for myocardial injury EKGs reflect left bundle branch block echocardiogram demonstrates preserved LV systolic function with dyssynergy septal contraction pattern with otherwise normal wall motion and no significant valvular disease Patient is ambulatory in room and asymptomatic Allergies Allergy/AdvReac Type Severity Reaction Status Date / Time No Known Allergies Allergy Unverified 05/10/19 17:05 Home Medications Home Medications Medication Instructions Recorded Confirmed Type Prostate Vitamin 1 tab PO DAILY 05/10/19 05/10/19 History aspirin [Aspir-81] 81 mg PO DAILY 05/10/19 05/10/19 History atorvastatin [Lipitor] 5 mg PO DAILY 05/10/19 05/10/19 History cholecalciferol (vitamin D3) 2,000 unit PO DAILY 05/10/19 05/10/19 History [Vitamin D3] lisinopril 15 mg PO DAILY 05/10/19 05/10/19 History multivitamin 1 tab PO DAILY 05/10/19 05/10/19 History Patient History Medical History Mitral valve prolapse Social History Preferred Language: Welsh Communication Ability: Effective Beliefs That Will Affect Care: None Current Living Situation: Spouse Other Information That Helps Us Care for You: No Feels Safe at Home: Yes Safety Concerns: Feels Safe At This Time Smoking Status: Never smoker Hx Alcohol Use: Yes Alcohol type: beer and wine Hx Substance Use: No Review of Systems Review of Systems: All systems reviewed & are unremarkable except as noted in HPI & below Physical Exam Constitutional: WD/WN, vitals as above Eyes: PERRL, conjunctivae normal, anicteric sclerae ENMT: external ear and nose normal, oropharynx normal Neck: trachea midline, no thyromegaly Respiratory: normal respiratory effort, lungs clear to auscultation Cardiovascular: RRR, no murmur, no edema Heart Sounds: normal S1 and normal S2; no gallop and no cardiac rub Gastrointestinal (Abdomen): normal bowel sounds, soft, nontender, no hepatosplenomegaly Musculoskeletal: no cyanosis or clubbing, extremities motor strength 5/5 Results & Data Vital Signs (Past 12 Hours) Vital Signs Temp Pulse Pulse Resp BP Pulse Ox 05/11/19 07:29 37 C 82 18 144/70 H 98 05/11/19 07:24 78 05/11/19 03:14 37.0 C 85 16 150/74 H 98 05/11/19 01:03 68 05/10/19 23:49 36.9 C 91 H 16 144/77 H 96 Laboratory Results Laboratory Results - last 24 hr 05/10/19 05/10/19 05/10/19 15:26 15:26 15:26 WBC 7.21 RBC 4.77 Hgb 15.5 Hct 44.2 MCV 92.7 MCH 32.5 MCHC 35.1 RDW Std Deviation 46.8 H RDW Coeff of Charissa 13.7 Plt Count 215 MPV 10.7 H Immature Gran % (Auto) 0.1 Neut % (Auto) 63.4 Lymph % (Auto) 26.4 [place] % (Auto) 8.5 Eos % (Auto) 1.5 Baso % (Auto) 0.1 Immature Gran # (Auto) 0.01 Neut # (Auto) 4.57 Lymph # (Auto) 1.90 [place] # (Auto) 0.61 H Eos # (Auto) 0.11 Baso # (Auto) 0.01 Carboxyhemoglobin Sodium 139 Potassium 3.8 Chloride 106 Carbon Dioxide 28 Anion Gap 4.0 BUN 20 H Creatinine 1.13 Est Cr Clr Drug Dosing 61.9 Est GFR ( Amer) 80.9 Est GFR (Non-Af Amer) 69.8 BUN/Creatinine Ratio 17.3 Glucose 211 H Estimat Average Glucose Hemoglobin A1c Calcium 9.1 Phosphorus 1.5 L* Magnesium 2.1 Total Bilirubin 0.5 AST 20 ALT 40 Alkaline Phosphatase 86 Troponin I < 0.015 Total Protein 7.5 Albumin 3.7 Globulin 3.8 Albumin/Globulin Ratio 1.0 Lipase 237 TSH 4.620 H Free T4 0.75 L Urine Color Dark Yellow Urine Appearance Clear Urine pH 5.0 Ur Specific [employer] 1.026 Urine Protein Trace H Urine Glucose (UA) Negative Urine Ketones Trace H Urine Blood Negative Urine Nitrite Negative Urine Bilirubin Negative Urine Urobilinogen Negative Ur Leukocyte Esterase Trace H Urine WBC (Auto) 1-5 Urine RBC (Auto) 0-4 U Hyaline Cast (Auto) 5-10 H U Epithel Cells (Auto) 5-10 H Urine Bacteria (Auto) Negative 05/10/19 05/10/19 05/11/19 16:31 21:58 03:42 WBC 9.58 RBC 4.47 L Hgb 14.5 Hct 41.4 L MCV 92.6 MCH 32.4 MCHC 35.0 RDW Std Deviation 46.8 H RDW Coeff of Charissa 13.8 Plt Count 214 MPV 10.8 H Immature Gran % (Auto) 0.1 Neut % (Auto) 65.2 Lymph % (Auto) 23.9 [place] % (Auto) 9.3 Eos % (Auto) 1.4 Baso % (Auto) 0.1 Immature Gran # (Auto) 0.01 Neut # (Auto) 6.25 Lymph # (Auto) 2.29 [place] # (Auto) 0.89 H Eos # (Auto) 0.13 Baso # (Auto) 0.01 Carboxyhemoglobin 0.0 Sodium Potassium Chloride Carbon Dioxide Anion Gap BUN Creatinine Est Cr Clr Drug Dosing Est GFR ( Amer) Est GFR (Non-Af Amer) BUN/Creatinine Ratio Glucose Estimat Average Glucose Hemoglobin A1c Calcium Phosphorus Magnesium Total Bilirubin AST ALT Alkaline Phosphatase Troponin I < 0.015 Total Protein Albumin Globulin Albumin/Globulin Ratio Lipase TSH Free T4 Urine Color Urine Appearance Urine pH Ur Specific [employer] Urine Protein Urine Glucose (UA) Urine Ketones Urine Blood Urine Nitrite Urine Bilirubin Urine Urobilinogen Ur Leukocyte Esterase Urine WBC (Auto) Urine RBC (Auto) U Hyaline Cast (Auto) U Epithel Cells (Auto) Urine Bacteria (Auto) 05/11/19 05/11/19 05/11/19 03:42 03:42 04:30 WBC RBC Hgb Hct MCV MCH MCHC RDW Std Deviation RDW Coeff of Charissa Plt Count MPV Immature Gran % (Auto) Neut % (Auto) Lymph % (Auto) [place] % (Auto) Eos % (Auto) Baso % (Auto) Immature Gran # (Auto) Neut # (Auto) Lymph # (Auto) [place] # (Auto) Eos # (Auto) Baso # (Auto) Carboxyhemoglobin Sodium 144 Potassium 4.1 Chloride 113 H Carbon Dioxide 27 Anion Gap 4.0 BUN 11 Creatinine 0.79 D Est Cr Clr Drug Dosing 88.6 Est GFR ( Amer) 112.3 Est GFR (Non-Af Amer) 96.9 BUN/Creatinine Ratio 14.5 Glucose 108 H Estimat Average Glucose Pending Hemoglobin A1c Pending Calcium 8.4 L Phosphorus 3.2 D Magnesium 2.0 Total Bilirubin AST ALT Alkaline Phosphatase Troponin I < 0.015 Total Protein Albumin Globulin Albumin/Globulin Ratio Lipase TSH 5.230 H Free T4 Urine Color Urine Appearance Urine pH Ur Specific [employer] Urine Protein Urine Glucose (UA) Urine Ketones Urine Blood Urine Nitrite Urine Bilirubin Urine Urobilinogen Ur Leukocyte Esterase Urine WBC (Auto) Urine RBC (Auto) U Hyaline Cast (Auto) U Epithel Cells (Auto) Urine Bacteria (Auto) 05/11/19 10:03 WBC RBC Hgb Hct MCV MCH MCHC RDW Std Deviation RDW Coeff of Charissa Plt Count MPV Immature Gran % (Auto) Neut % (Auto) Lymph % (Auto) [place] % (Auto) Eos % (Auto) Baso % (Auto) Immature Gran # (Auto) Neut # (Auto) Lymph # (Auto) [place] # (Auto) Eos # (Auto) Baso # (Auto) Carboxyhemoglobin Sodium Potassium Chloride Carbon Dioxide Anion Gap BUN Creatinine Est Cr Clr Drug Dosing Est GFR ( Amer) Est GFR (Non-Af Amer) BUN/Creatinine Ratio Glucose Estimat Average Glucose Hemoglobin A1c Calcium Phosphorus Magnesium Total Bilirubin AST ALT Alkaline Phosphatase Troponin I < 0.015 Total Protein Albumin Globulin Albumin/Globulin Ratio Lipase TSH Free T4 Urine Color Urine Appearance Urine pH Ur Specific [employer] Urine Protein Urine Glucose (UA) Urine Ketones Urine Blood Urine Nitrite Urine Bilirubin Urine Urobilinogen Ur Leukocyte Esterase Urine WBC (Auto) Urine RBC (Auto) U Hyaline Cast (Auto) U Epithel Cells (Auto) Urine Bacteria (Auto)
--- NOTE | 2019-05-11 13:39 | Discharge Summary ---
Date of Service May 11, 2019 Admission HPI Per Admitting Provider CHIEF COMPLAINT: Presyncope. HISTORY OF PRESENT ILLNESS: This is a 63-year-old male with past medical history significant for hypertension, hyperlipidemia, BPH, presents with presyncope. The patient is visiting [employer] for football game. He is about [place] hours from [place]. He was sitting in between two recreational vehicles; one of the vehicle engine was on. He was sitting in a chair, he suddenly felt dizzy, lightheaded and feeling hot and just sat down, then EMS was called in and he thought he should come in the hospital and check in. Currently resting comfortably and hemodynamically stable. Denies any chest pain, no shortness of breath, no cough, no fever, no chills, no headache, no blurred vision, no runny nose, no sore throat, no difficulty swallowing. No recent weight gain or weight loss. Sleeps okay. No fever, chills. Appetite is okay. No nausea, no abdominal pain, no shortness of breath. Generally normal bowel and bladder movements. Today while coming he moved his bowels in his pants, he thinks maybe because he could not have time to go to bathroom. It was somewhat loose. Denies any blood in stool or black stools. Normal bladder movements. No hematuria, no burning micturition, no swelling in the legs, no rash. ALLERGIES: No known drug allergies. PAST MEDICAL HISTORY: As mentioned above. PAST SURGICAL HISTORY: None. MEDICATIONS: Aspirin, atorvastatin, lisinopril, multivitamins, prostate vitamin. FAMILY HISTORY: Significant for father and mother had stroke and heart disease. SOCIAL HISTORY: No history of smoking; alcohol rarely. No drug use. REVIEW OF SYMPTOMS: As per HPI. Rest of review of systems negative. Admission Exam Per Admitting Provider PHYSICAL EXAMINATION: GENERAL: The patient is of moderate build, not in acute distress. VITAL SIGNS: Temperature 36.6, pulse 100, respiratory rate 15, blood pressure 149/70, oxygen 98% on room air. HEENT: No pallor, no icterus. Pupils equal, round, and reactive to light. NECK: No JVD, no neck masses. CARDIOVASCULAR: S1, S2 heard, regular rate and rhythm, no murmur, no gallop. RESPIRATORY SYSTEM: Normal AP diameter. No accessory muscle use. No wheezing, no crackles. ABDOMEN: Soft, bowel sounds present, nontender. No distention. CENTRAL NERVOUS SYSTEM: Cranial nerves II-XII grossly intact. Nonfocal. EXTREMITIES: No edema, no erythema. Principal Diagnosis PRESYNCOPE, LEFT BUNDLE-BRANCH BLOCK Discharge Exam General- oriented x 3, not in distress, speaks in sentences with no effort or accessory muscle use Head- atraumatic Eyes- PERRL, EOMI, anicteric ENT- oropharynx clear Neck- supple, no JVD, no adenopathy, no thyromegaly; carotids +2/2, no bruits appreciated Lungs- clear to auscultation bilaterally, no rales/wheezes Heart- normal rate, regular rhythm; no murmur, no gallop, no rub appreciated Abdomen- normal bowel sounds, nondistended, soft, nontender, no masses or hepatosplenomegaly Extremities- no pretibial edema, no calf tenderness; peripheral pulses intact Neuro- alert, oriented x 3; CN 2-12 grossly intact; motor 5/5 bilaterally;sensation 100% on all extremities; no other gross focal neurologic deficits Skin- warm & dry Discharge Data Allergies Allergy/AdvReac Type Severity Reaction Status Date / Time No Known Allergies Allergy Unverified 05/10/19 17:05 Consultations 05/10/19 17:20 ED Decision to Admit Stat 05/11/19 08:56 Consult Cardiology Routine Ordered Studies 05/10/19 15:45 CT angio head w con CLINICAL HISTORY: 63 years-old Male presenting with near syncope, disorientation. TECHNIQUE: Multidetector CT angiography of the head was performed after the administration of intravenous contrast. 3-D volumetric and/or maximum intensity projection (MIP) images were subsequently reconstructed for review. IV contrast: 120 mL of Optiray 320. One or more dose lowering techniques were used consistent with the principles of ALARA (as low as reasonably achievable), including automatic exposure control, mA or kV adjustment to individual patient size, and/or use of iterative reconstruction. COMPARISON: None. CT DOSE (mGy.cm): The estimated cumulative dose is 1087.37. FINDINGS: Community Relations Rep topogram: Unremarkable. Anterior circulation: Intracranial portions of the internal carotid arteries patent to the level of the termini. Anterior cerebral arteries patent. Middle cerebral arteries patent. Anterior communicating artery patent. Posterior circulation: Codominant vertebral arteries. Intradural portions of the vertebral arteries patent. Posterior inferior cerebellar arteries patent. Basilar artery patent. Anterior inferior cerebellar arteries poorly visualized. Superior cerebellar arteries patent. Posterior cerebral arteries hypoplastic or aplastic and the P1 segments and otherwise patent. Posterior communicating arteries patent. Dural venous sinuses: Patent. Other: Allowing for the phase of contrast, brain parenchyma within normal limits. Calvarium intact. IMPRESSION: 1. No evidence of aneurysm, focal vessel occlusion, or significant stenosis of the intracranial arteries. CT angio neck with con CLINICAL HISTORY: 63 years-old Male presenting with near syncope, episodic disorientation. TECHNIQUE: Multidetector CT angiography of the neck was performed after the administration of intravenous contrast. 3-D volumetric and/or maximum intensity projection (MIP) images were subsequently reconstructed for review. IV contrast: 120 mL of Optiray 320. One or more dose lowering techniques were used consistent with the principles of ALARA (as low as reasonably achievable), including automatic exposure control, mA or kV adjustment to individual patient size, and/or use of iterative reconstruction. Stenosis measurements were based on NASCET-like criteria (distal lumen diameter as the denominator for stenosis measurement). COMPARISON: None. CT DOSE (mGy.cm): The estimated cumulative dose is 1087.37 mGy.cm. FINDINGS: Community Relations Rep topogram: Unremarkable. Aortic arch: Normal three-vessel aortic arch with patent origins of the branch vessels. Innominate artery: Patent. Right subclavian artery: Patent. Right common carotid artery: Patent. Right internal and external carotid arteries: Right carotid bifurcation patent. Right internal and external carotid arteries widely patent. Left common carotid artery: Patent. Left internal and external carotid arteries: Left carotid bifurcation patent. Left internal and external carotid arteries widely patent. Left subclavian artery: Patent. Vertebral arteries: Right dominant vertebral artery. Origins and courses of the bilateral vertebral arteries patent. Other: Limited intracranial evaluation within normal limits. Soft tissues of the neck normal allowing for the phase of contrast. Degenerative changes of the cervical spine. Lung apices clear. IMPRESSION: 1. No evidence of dissection, focal vessel occlusion, or significant stenosis of the cervical arteries. CT head/brain wo con CLINICAL HISTORY: 63 years-old Male presenting with near syncope. TECHNIQUE: Multidetector CT imaging of the head was performed without the use of intravenous contrast. IV contrast: None. One or more dose lowering techniques were used consistent with the principles of ALARA (as low as reasonably achievable), including automatic exposure control, mA or kV adjustment to individual patient size, and/or use of iterative reconstruction. COMPARISON: None. CT DOSE (mGy.cm): The estimated cumulative dose is 1087.37. FINDINGS: Community Relations Rep topogram: Unremarkable. Ventricles and sulci normal in size. No hemorrhage. Brain parenchyma normal in appearance with preserved mackey-white differentiation. No acute territorial infarct. No mass effect or midline shift. No extra-axial fluid collection. Paranasal sinuses and mastoid air cells clear. Calvarium intact. IMPRESSION: 1. No acute intracranial abnormality. Hospital Course (1) Near syncope: In the setting of left bundle branch block No previous EKGs available for comparison Acute coronary syndrome ruled out Troponins x3: Negative Repeat EKG: Left bundle branch block Echo: Left ventricle is normal in size There is mild concentric left ventricle hypertrophy There is an abnormal septal motion consistent with left bundle branch block with otherwise normal wall motion and contractility Left ventricular systolic function is normal Ejection fraction is 55 to 60% Aortic valve sclerosis mild, without significant aortic valve stenosis Symptoms have resolved during admission [employer]ist Dr. Blake was consulted-symptoms felt to be vasovagal in nature but patient has Risk factors for coronary disease including hypertension, dyslipidemia, family history Patient will need further investigation as an outpatient including stress imaging and event monitor placement to include bradycardia arrhythmias Cleared for discharge, please refer to doll wigs hackler as outpatient stress test and monitor worker, recommended no heavy exertion and driving until work-up has been completed by doll wigs hackler Hypertension Stable, continue usual lisinopril Hypothyroidism TSH 5.2 Free T4 0.75 Start levothyroxine 50 mcg daily Repeat blood function tests in 4 to 6 months Further work-up as an outpatient Dyslipidemia Continue atorvastatin Hyperglycemia Blood glucose level 211 on admission, improved to 108 in the morning A1c pending Follow-up as an outpatient Hypophosphatemia Replaced, resolved Disposition Continue usual medications with the addition of levothyroxine Follow-up with primary care physician this week Refer to doll wigs hackler for stress test and monitor worker placement Repeat thyroid function tests in 4 to 6 weeks Plan of care discussed with patient in detail and at length All questions answered He is understanding, comfortable, agreeable with plan of care Total Time Total Time Spent Total Time Spent (In Minutes): 55 minutes Discharge Plan Discharge Items Patient Disposition: Home - Self-Care Reason For Visit: PRE SYNCOPE Discharge Diagnosis: PRE-SYNCOPE, LEFT BUNDLE BRANCH BLOCK Discharge Goals: Diagnostic testing and Therapeutic intervention Activity: As commented below Activity Comment: NO HEAVY EXERTION UNTIL RE-EVALUATED BY PRIMARY CARE PHYSICIAN Lifting: Wait until after follow-up appointment Exercise/Sports: Wait until after follow-up appointment Driving/Machine Use Comment: NO DRIVING UNTIL ALLOWED BY CVT RN Non-emergency contact: Primary Care Provider Call non-emergency contact if: you have any medication questions and you have a fever Follow-up/Referrals: Graham Clarke, [Primary Care Provider] - Diet: Heart Healthy Addtl Provider Instructions: PLEASE FOLLOW UP WITH PRIMARY CARE PHYSICIAN THIS COMING WEEK. CVT RN REFERRAL IS ALSO RECOMMENDED FOR A STRESS TEST AND DIRECTOR OF SALES SUPPORT PLACEMENT. NEW MEDICATION: LEVOTHYROXINE 50MCG - 1 TABLET BY MOUTH DAILY FOR LOW THYROID HORMONE LEVEL. REPEAT THYROID FUNCTION TEST IS RECOMMENDED IN 4-6 WEEKS. RESUME YOUR USUAL MEDICATIONS. PLEASE CALL 911 IMMEDIATELY IF WITH RECURRENCE OF SYMPTOMS, CHEST PAIN, SHORTNESS OF BREATH. ALWAYS STAY WELL HYDRATED. Prescriptions: New levothyroxine 50 mcg capsule 50 mcg PO DAILY Qty: 30 RF: 2 Continued multivitamin Tablet 1 tab PO DAILY RF: 0 atorvastatin [Lipitor] 10 mg Tablet 5 mg PO DAILY RF: 0 aspirin [Aspir-81] 81 mg Tablet,Delayed Release (Dr/Ec) 81 mg PO DAILY RF: 0 lisinopril 10 mg Tablet 15 mg PO DAILY RF: 0 cholecalciferol (vitamin D3) [Vitamin D3] 2,000 unit Capsule 2,000 unit PO DAILY RF: 0 Prostate Vitamin 1 tab PO DAILY RF: 0 Stand-Alone Forms: [facility] Discharge Orders: Discharge Order (Routine); Ordered 05/11/19 Ordered By: Jason Noriega Admission Data Admit Date/Time: 05/10/19 18:28 Attending Provider: Jason Noriega Admit Provider: Raudel Gutierrez Primary Care Provider: Graham Clarke Other Providers: Raudel Gutierrez ; Ba Blake Service: Telemetry Other Interventions: Discharge Summary Assessment (RN) Last Done: 05/11/19 13:22
[2019-05-12 06:59] LABS: Estimated Average Glucose 120 mg/dl; Hemoglobin A1C 5.8 % (4.5-5.6)
[2019-05-12] MEDS ORDERED: LEVOTHYROXINE SODIUM 50 MCG TABLET PO ONE (13:27)
== END 2019-05-11 15:00 | disposition home or self-care (01) ==
LOC: 2E 14:45 → ED 14:45 → 2E 19:56